=== PATIENT | male | born 1995 | race American Indian/Alaskan Native ===

== ENCOUNTER 2020-11-19 23:06 | Emergency (ER) | payer BC ==
[2020-11-19 23:16] VITALS: BP 120/70
[2020-11-19] MEDS ORDERED: LIDOCAINE-MPF (1%) 10 MG/1 ML VIAL 5 ML INFILTRATI ONE (23:18)
[2020-11-19] MEDS ORDERED: IBUPROFEN 600 MG TAB PO ONE (23:18)
--- NOTE | 2020-11-19 23:26 | Emergency Department Report ---
ED Upper Extremity Inj HPI - General Chief Complaint: Laceration/Recheck/Suture Stated Complaint: RT FINGER LACERATION Source: patient Mode of arrival: Ambulatory Limitations: No Limitations - History of Present Illness Initial Comments: Patient is a 25-year-old -[place] male with no past medical history presents to the ED with complaint of acute onset painful bleeding dorsal right index finger laceration after a piece of broken glass cut his dorsal right index finger when he tried to clear the broken piece of glass from a jar about 2 hours ago. Patient states that the bleeding is not well controlled and that the pain has been constant and persistent. Patient states that he is up-to-date with all his tetanus vaccinations. Patient denies numbness and tingling or weakness of right hand or right index finger, nausea, vomiting, lightheadedness, fall, dizziness, dizziness, syncope, seizures, chest pain or shortness of breath. MD Complaint: Injury to:: right (index finger bleeding laceration), finger (right index finger laceration) -: Sudden, hour(s) (2) Other Extremity Injury: Fingers: Right (right index finger laceration) Other Injuries: none Handedness: right Place: home Severity scale (0 -10): 7 Improves With: immobilization, movement Worsens With: movement of extremity Context: direct blow, laceration, injury Associated Symptoms: denies other symptoms, suspects foreign body. denies: weakness, numbness, neck pain, nausea/vomiting, heard/felt popping sensat - Related Data Previous Rx's Medication Instructions Recorded Last Taken Type Ibuprofen [Motrin] 600 mg PO Q8H PRN #30 tablet 11/20/20 Unknown Rx cephALEXin [Keflex] 500 mg PO Q12HR #20 cap 11/20/20 Unknown Rx Allergies Allergy/AdvReac Type Severity Reaction Status Date / Time No Known Allergies Allergy Unverified 11/19/20 23:12 ED Review of Systems ROS: Stated complaint: RT FINGER LACERATION Other details as noted in HPI Constitutional: denies: chills, fever Eyes: denies: eye pain, eye discharge, vision change ENT: denies: ear pain, throat pain Respiratory: denies: cough, shortness of breath, wheezing Cardiovascular: denies: chest pain, palpitations Endocrine: no symptoms reported Gastrointestinal: denies: abdominal pain, nausea, diarrhea Genitourinary: denies: urgency, dysuria Musculoskeletal: arthralgia (Right index finger pain due to a bleeding laceration wound). denies: back pain, joint swelling Skin: other (Bleeding dorsal right index finger laceration with localized pain.). denies: rash, lesions Neurological: denies: headache, weakness, paresthesias Psychiatric: denies: anxiety, depression Hematological/Lymphatic: denies: easy bleeding, easy bruising ED Past Medical Hx - Past Medical History Previous Medical History?: No - Surgical History Past Surgical History?: No - Social History Smoking Status: Never Smoker Substance Use Type: None - Medications Home Medications: Home Medications Medication Instructions Recorded Confirmed Last Taken Type Ibuprofen [Motrin] 600 mg PO Q8H PRN #30 tablet 11/20/20 Unknown Rx cephALEXin [Keflex] 500 mg PO Q12HR #20 cap 11/20/20 Unknown Rx ED Physical Exam - General Limitations: No Limitations General appearance: alert, in no apparent distress - Head Head exam: Present: atraumatic, normocephalic, normal inspection - Eye Eye exam: Present: normal appearance, PERRL, EOMI Pupils: Present: normal accommodation - ENT ENT exam: Present: normal exam, normal orophraynx, mucous membranes moist, TM's normal bilaterally, normal external ear exam - Neck Neck exam: Present: normal inspection, full ROM - Respiratory Respiratory exam: Present: normal lung sounds bilaterally. Absent: respiratory distress, wheezes, rales, stridor, chest wall tenderness, accessory muscle use - Cardiovascular Cardiovascular Exam: Present: regular rate, normal rhythm, normal heart sounds. Absent: systolic murmur, diastolic murmur, rubs, gallop - GI/Abdominal GI/Abdominal exam: Present: soft, normal bowel sounds. Absent: tenderness, guarding, rebound, hyperactive bowel sounds, hypoactive bowel sounds, mass - Extremities Exam Extremities exam: Present: normal inspection, full ROM, tenderness (Palpable localized dorsal right index finger tenderness due to a 4 cm bleeding laceration wound), normal capillary refill. Absent: pedal edema, joint swelling, calf tenderness - Back Exam Back exam: Present: normal inspection, full ROM. Absent: tenderness, CVA tenderness (R), CVA tenderness (L), muscle spasm, paraspinal tenderness, vertebral tenderness - Neurological Exam Neurological exam: Present: alert, oriented X3, CN II-XII intact, normal gait, reflexes normal - Psychiatric Psychiatric exam: Present: normal affect, normal mood - Skin Skin exam: Present: warm, dry, intact, normal color, other (Bleeding dorsal right index finger 4 cm laceration). Absent: rash ED Course Vital Signs 11/19/20 23:11 Temperature 98.1 F Pulse Rate 80 Respiratory 18 Rate Blood Pressure 120/70 O2 Sat by Pulse 99 Oximetry - Laceration /Wound Repair Right Distal Dorsal Finger Wound Location: upper extremity (Distal dorsal right index finger laceration) Wound Length (cm): 4 Wound's Depth, Shape: into muscle, linear Wound Explored: contaminated Irrigated w/ Saline (ccs): 200 Betadine Prep?: Yes Anesthesia: 1% Lidocaine Volume Anesthetic (ccs): 4 Wound Debrided: extensive Wound Repaired With: sutures Suture Size/Type: 4:0, proline Number of Sutures: 8 Layer Closure?: No Sterile Dressing Applied?: No Progress: Patient tolerated the procedure well. The wound was dressed appropriately after suturing was complete. Patient was discharged home on pain medication and prophylactic antibiotics. Patient was advised to return to the ED in 12 to 14 days for suture removal or immediately to the ED if symptoms get worse. ED Medical Decision Making - Radiology Data Radiology results: report reviewed, image reviewed [facility] [address] [place] [address] XRay Report Signed Patient: GISSELLE TAPIA MR #: [id number] : 1995 Acct:[id number] Age/Sex: 25 / M ADM Date: 11/19/20 Loc: ED Attending Dr: Ordering Physician: SHANTELLE HINES Date of Service: 11/19/20 Procedure(s): XR finger(s) 2+V RT Accession Number(s): [id number] cc: SHANTELLE HINES Fluoro Time In Minutes: RIGHT FINGER(S) 3 VIEW(S) INDICATION / CLINICAL INFORMATION: Puncture wound - r/o foreign bodies COMPARISON: None available. FINDINGS: BONES / JOINT(S): No acute fracture or subluxation. No significant arthritis. SOFT TISSUES: No significant abnormality. ADDITIONAL FINDINGS: No radiopaque foreign body Signer Name: Alexx Gilbert MD Signed: 11/19/2020 11:46 PM Workstation Name: [id number] Transcribed By: TL Dictated By: Alexx Gilbert MD Electronically Authenticated By: Alexx Gilbert MD Signed Date/Time: 11/19/202345 DD/ 45 TD/TT: - Medical Decision Making This is a 25-year-old -[place] male with no past medical history presents to the ED with complaint of acute onset painful bleeding dorsal right index finger laceration after a piece of broken glass cut his dorsal right index finger when he tried to clear the broken piece of glass from a jar about 2 hours ago. Patient states that the bleeding is not well controlled and that the pain has been constant and persistent. Patient states that he is up-to-date with all his tetanus vaccinations. In the ED, patient is alert and oriented x3 and is not in any distress. Patient was treated for pain in the ED and right index finger x-ray showed no acute fractures or subluxations or presence of any foreign bodies within the tissues. The dorsal right index finger bleeding laceration wound was cleaned thoroughly and sutured per protocol. Patient tolerated the procedure well. The wound was then dressed appropriately and the patient was discharged home on pain medications and prophylactic antibiotics, an d was advised return to the ED immediately if symptoms get worse especially if you develop severe pain or swelling, erythematous rash around the wound or nausea and vomiting and fever. Patient was otherwise advised to follow-up with his primary care physician in 7 to 10 days for reevaluation. Patient was also advised to return to the ED or to his primary care physician in 12 to 14 days for suture removal. - Differential Diagnosis Finger laceration; finger abrasion; finger puncture wound; finger fracture Critical care attestation.: If time is entered above; I have spent that time in minutes in the direct care of this critically ill patient, excluding procedure time. ED Disposition Clinical Impression: Laceration of right index finger w/o foreign body w/o damage to nail Qualifiers: Encounter type: initial encounter Qualified Code(s): S61.210A - Laceration without foreign body of right index finger without damage to nail, initial encounter Puncture wound of right index finger without foreign body without damage to nail Qualifiers: Encounter type: initial encounter Qualified Code(s): S61.230A - Puncture wound without foreign body of right index finger without damage to nail, initial encounter Disposition: DC-01 TO HOME OR SELFCARE Is pt being admited?: No Does the pt Need Aspirin: No Condition: Stable Instructions: Laceration Care, Adult, [id number], Sutured Wound Care, [id number] Additional Instructions: Right index finger x-ray showed no acute fractures or subluxation or presence of any foreign bodies. Therefore take pain medications and antibiotics as advised, drink plenty of fluids and follow-up with your primary care physician in 7 to 10 days for reevaluation. Return to the ED immediately if symptoms get worse, otherwise return to the ED or to your primary care physician in 12 to 14 days for suture removal. Prescriptions: cephALEXin [Keflex] 500 mg PO Q12HR #20 cap Ibuprofen [Motrin] 600 mg PO Q8H PRN #30 tablet PRN Reason: Pain Referrals: PRIMARY CARE, [Primary Care Provider] - 3-5 Days [facility] [Provider Group] - 3-5 Days Time of Disposition: 01:51 Print Language: SAO TOMEAN
--- NOTE | 2020-11-19 23:50 | XRay Report ---
RIGHT FINGER(S) 3 VIEW(S) INDICATION / CLINICAL INFORMATION: Puncture wound - r/o foreign bodies COMPARISON: None available. FINDINGS: BONES / JOINT(S): No acute fracture or subluxation. No significant arthritis. SOFT TISSUES: No significant abnormality. ADDITIONAL FINDINGS: No radiopaque foreign body Signer Name: Alexx Gilbert MD Signed: 11/19/2020 11:46 PM Workstation Name: [id number]
== END 2020-11-20 02:07 | disposition home or self-care (01) ==
LOC: ED 23:06
DX: S61.210A Laceration without foreign body of right index finger without damage to nail, initial encounter (principal); S61.230A Puncture wound without foreign body of right index finger without damage to nail, initial encounter; Z79.899 Other long term (current) drug therapy; W25.XXXA Contact with sharp glass, initial encounter; Y93.89 Activity, other specified; Y92.89 Other specified places as the place of occurrence of the external cause; Y99.8 Other external cause status
CPT/HCPCS: 99283